=== PATIENT | male | born 1975 | race Caucasian/White ===

== ENCOUNTER → 2017-08-12 | Outpatient (CLI) | payer OTHER ==
[~2017-08-12] MED LIST: GADOBUTROL 7.5 MMOL/7.5 ML VIAL INT ART ONE; IOHEXOL 300 MG/ML 50 ML VIAL. INT ART ONE; LIDOCAINE 1% Multi-Dose 20 ML VIAL. ID ONE
--- NOTE | 2017-08-12 15:24 | KCIC ---
MR arthrogram of the right shoulder Indication: Right shoulder pain. Severe with movement. Limited range of motion for 3 months. Technique: Intra-articular contrast injected into the glenohumeral joint and is reported separately. Routine 4 plane sequences were obtained, including ABER positioning. Findings: Acromioclavicular joint: Mildly degenerative. Mild undersurface mass effect. Rotator cuff: Very deep linear bursal surface tear at the anterior supraspinatus tendon footprint, measures 1 cm AP diameter and crosses 90 percent of the tendon. There is a thin intact layer of underlying undersurface tissue. This tear contains fluid which communicates with a small subdeltoid bursal fluid collection. The tear and the subdeltoid bursa do not accumulate contrast. Mild generalized rotator cuff tendinosis. Articular cartilage: No acute cartilage defect or advanced DJD. Labrum: Defect at the superior labrum compatible with a tear. Biceps tendon: Intact Bones: No lesion or acute fracture. Soft tissue: No acute findings. Impression: 1. Superior labral tear. 2. Deep 90 percent linear bursal surface rotator cuff tear of the anterior supraspinatus tendon footprint. Electronically signed by: Tramaine De Leon MD (08/12/2017 3:21 PM) [id number]
--- NOTE | 2017-08-12 15:55 | KCIC ---
PROCEDURE: Right shoulder injection using fluoroscopic guidance, prior to MR. HISTORY: Shoulder pain. TECHNIQUE: The procedure was explained to the patient as were potential risks, including among others infection, bleeding or allergic reaction. All questions were answered. Informed written and verbal consent was obtained. The shoulder was prepped and draped in the usual sterile manner. Following administration of local anesthetic, a 22-gauge needle was advanced into the anterior shoulder. Following negative aspiration, 12 cc of a solution of 5cc Omnipaque-300 contrast, 5 cc 1% lidocaine, 10 cc normal saline, and 0.1 cc gadolinium was injected without difficulty. The needle was removed. There was good hemostasis at the injection site. The patient left in stable condition without immediate complication. A single spot image is obtained. FLUOROSCOPY TIME:?23 seconds Electronically signed by: Tramaine De Leon MD (08/12/2017 3:51 PM) [id number]
== END | disposition home or self-care (01) ==
LOC: KCIC 12:46
PROVIDERS: ATTEND Specialist
DX: S43.431A Superior glenoid labrum lesion of right shoulder, initial encounter (principal); M75.101 Unspecified rotator cuff tear or rupture of right shoulder, not specified as traumatic; X58.XXXA Exposure to other specified factors, initial encounter; Y93.89 Activity, other specified; Y92.89 Other specified places as the place of occurrence of the external cause; Y99.8 Other external cause status
CPT/HCPCS: 73040; 73222; A9585; Q9967